=== PATIENT | female | born 1975 | race Asian ===

== ENCOUNTER 2023-11-26 13:57 | Outpatient (CLI) | payer OTHER | END 2023-11-26 13:58 | disposition home or self-care (01) | LOC: CSHMAMMO 13:57 | PROVIDERS: ATTEND Student in an Organized Health Care Education/Training Program | DX: D24.2 Benign neoplasm of left breast (principal) | CPT/HCPCS: G0279 ==

== ENCOUNTER 2025-06-14 14:16 | Outpatient (CLI) | payer OTHER | END 2025-06-14 14:17 | disposition home or self-care (01) | LOC: CSHMAMMO 14:16 | PROVIDERS: ATTEND Student in an Organized Health Care Education/Training Program | DX: Z12.31 Encounter for screening mammogram for malignant neoplasm of breast (principal) | CPT/HCPCS: 77063; 77067 ==